=== PATIENT | female | born 1975 | race Hispanic/Latino ===

== ENCOUNTER 2020-07-03 16:15 | Emergency (ER) | payer SELFPAY ==
[2020-07-03 17:17] LABS: BASOPHILS % (AUTO) 0.3 % (0.0-5.0); HEMATOCRIT 41.8 % (36-48); LYMPHOCYTES % (AUTO) 25.7 % (21.0-51.0); MEAN CORPUSCULAR HEMOGLOBIN 27.8 pg (27.0-33.0); MEAN CORPUSCULAR HGB CONC 32.8 g/dL (32.0-36.0); MEAN CORPUSCULAR VOLUME 84.8 fL (79-99); MONOCYTES % (AUTO) 6.3 % (3.0-13.0); NEUTROPHILS % (AUTO) 66.6 % (40.0-77.0); PLATELET COUNT (AUTO) 251 K/uL (130-400); RED BLOOD CELL COUNT(AUTO) 4.93 MIL/uL (4.00-5.50); RED CELL DISTRIBUTION WIDTH 12.9 % (11.0-15.5); WHITE BLOOD COUNT (AUTO) 6.8 K/uL (4.8-10.8)
[2020-07-03 17:43] LABS: ALBUMIN 3.9 g/dL (3.5-5.0); BILIRUBIN,TOTAL 0.3 mg/dL (0.2-1.0); CREATININE 0.7 mg/dL (0.5-1.5); TOTAL PROTEIN, SERUM 7.4 g/dL (6.0-8.3)
[2020-07-03] MEDS ORDERED: KETOROLAC TROMETHAMINE 15MG/ML ONE (20:22)
[2020-07-03] MEDS ORDERED: DiphenhydrAMINE HCL 50 MG/ML VIAL ONE (20:22)
[2020-07-03] MEDS ORDERED: PROCHLORPERAZINE EDISYLATE 10 MG/2 ML VIAL ONE (20:22)
== END 2020-07-03 21:20 | disposition home or self-care (01) ==
LOC: EDH 16:15
DX: G43.709 Chronic migraine without aura, not intractable, without status migrainosus (principal); I10 Essential (primary) hypertension; Z86.73 Personal history of transient ischemic attack (TIA), and cerebral infarction without residual deficits; Z90.710 Acquired absence of both cervix and uterus
CPT/HCPCS: 36415; 70450; 70544; 80053; 83605; 85025; 85378; 85651; 96374; 96375; 99285; J0780; J1200; J1885